=== PATIENT | male | born 1945 | race Caucasian/White ===

== ENCOUNTER 2023-11-20 10:27 | Emergency (ER) | payer MEDICARE, OTHER, SELFPAY ==
[2023-11-20 10:28] VITALS: BP 152/82
[2023-11-20 11:18] LABS: % Basophils 0.4 % (0-2); % Eosinophils 0.4 % (0-6); % Immature Granulocytes 0.2 % (0-0.5); % Lymphocytes 21.4 % (20.5-51.1); % Monocytes 12.1 % (1.7-9.3); % Neutrophils 65.5 % (42.2-75.2); Absolute Monocytes 0.6 10^3/uL (0.1-0.6); Absolute Neutrophils 3.2 10^3/uL (1.4-6.5); Hematocrit 36.8 % (39.0-52.0); Hemoglobin 12.9 g/dL (13.0-18.0); Mean Corp Hgb Conc. 35.1 g/dL (33.0-37.0); Mean Corpuscular Hgb 34.4 pg (27.0-31.0); Mean Corpuscular Volume 98.1 fL (80.0-94.0); Mean Platelet Volume 10.2 fL (7.4-10.4); Nucleated Red Blood Cells % 0 % (-); Platelet Count 174 10^3/uL (130-400); Red Blood Cell Count 3.75 10^6/uL (4.70-6.10); White Blood Cell Count 4.9 10^3/uL (4.8-10.8)
[2023-11-20 11:29] LABS: ALT (SGPT) 20 U/L (0-50); AST (SGOT) 28 U/L (17-59); Albumin 4.8 g/dl (3.5-5.0); Alkaline Phosphatase 82 U/L (38-126); Blood Urea Nitrogen 21 mg/dl (9-20); Calcium 10.2 mg/dl (8.4-10.2); Carbon Dioxide 29 mmol/L (22-30); Chloride 101 mmol/L (98-107); Glucose 105 mg/dl (70-99); Potassium 4.5 mmol/L (3.5-5.1); Sodium 139 mmol/L (135-145); Total Bilirubin 0.7 mg/dl (0.2-1.3); Total Protein 7.4 g/dl (6.3-8.2); eGFR > 60.00
--- NOTE | 2023-11-20 12:01 | ED.GENMED ---
History of Present Illness
<Anderson Jeronimo MD, Resident - Last Filed: 11/20/23 12:47>
General
Chief Complaint: Rectal Bleeding
Time Seen by Provider: 11/20/23 10:58
History of Present Illness
History of Present Illness:
78-year-old male, Mr. Henrry Lin presented past medical history of hypertension, hypercholesterolemia, gout, [place] to the ER presented to the ER at the request of GI, ANURADHA. Patient reports having melena from the past couple of weeks and 1 episode of
bleeding per rectum on 11/18/2023. Patient had history of colonoscopy/polyp excision done in May 2022. Patient reports chronic use of NSAIDs for his cervical spondylosis. Patient denies abdominal pain, fever/chills, chest pain, acute
back pain, bladder issues, tenesmus, recent unintentional weight loss, loss of appetite. Patient has been using Benefiber for his constipation. No prior history of hemorrhoids, anal fissures.
Past History
<Anderson Jeronimo MD, Resident - Last Filed: 11/20/23 12:47>
Past History
ED Past Medical History: Other (Osteoarthritis, gout, hypercholesterolemia, hypertension, aortic regurgitation)
ED Past Surgical History: Other (Appendectomy, herniorrhaphy, cataract surgeries, vasectomy, left knee joint replacement.)
Social History
Tobacco: Non-smoker
Alcohol: Occasional
Drug: None
Living: with family
Phy Exam
<Anderson Jeronimo MD, Resident - Last Filed: 11/20/23 12:47>
Physical Exam
Physical Exam:
Physical Exam
General: no apparent distress, not acutely ill
Neck: supple. no meningeal signs
Heart: s1/s2 regular rate and rhythm, murmur +, equal radial pulses.
Lungs: no acute respiratory distress. clear bilaterally
Abdomen: normal bowel sounds. Nontender, nondistended,. no CVAT
Neuro: alert and oriented. no focal neurological deficits
Skin: no rash
Psychiatric: well kept. interactive and cooperative
Extremities: no edema. no calf tenderness. good distal pulses
Course
<Veneela Manuel Jeronimo MD, Resident - Last Filed: 11/20/23 12:47>
Orders/Labs/Results
Orders:
Orders
11/20/23 11:08
Complete Blood Count/With Diff Urgent
Comprehensive Metabolic Panel Urgent
Abnormal Lab Results
11/20/23
11:08
RBC 3.75 L 10^6/uL
(4.70-6.10)
Hgb 12.9 L g/dL
(13.0-18.0)
Hct 36.8 L %
(39.0-52.0)
MCV 98.1 H fL
(80.0-94.0)
MCH 34.4 H pg
(27.0-31.0)
Absolute Lymphs (auto) 1.0 L 10^3/uL
(1.2-3.4)
Monocytes % 12.1 H %
(1.7-9.3)
BUN 21 H mg/dl
(9-20)
Glucose 105 H mg/dl
(70-99)
11/20/23 11:08
11/20/23 11:08
Vital Signs
Initial and Last Documented VS:
Initial Vital Signs
Temp Pulse Resp BP Pulse Ox
98.4 F 95 18 152/82 97
11/20/23 10:28 11/20/23 10:28 11/20/23 10:28 11/20/23 10:28 11/20/23 10:28
Last Documented Vital Signs
Temp Pulse Resp BP Pulse Ox
98.4 F 95 18 152/82 95
11/20/23 10:28 11/20/23 10:28 11/20/23 10:28 11/20/23 10:28 11/20/23 11:12
<Clint Schultz Radha, DO - Last Filed: 11/20/23 12:54>
Orders/Labs/Results
Orders:
Orders
11/20/23 11:08
Complete Blood Count/With Diff Urgent
Comprehensive Metabolic Panel Urgent
Abnormal Lab Results
11/20/23
11:08
RBC 3.75 L 10^6/uL
(4.70-6.10)
Hgb 12.9 L g/dL
(13.0-18.0)
Hct 36.8 L %
(39.0-52.0)
MCV 98.1 H fL
(80.0-94.0)
MCH 34.4 H pg
(27.0-31.0)
Absolute Lymphs (auto) 1.0 L 10^3/uL
(1.2-3.4)
Monocytes % 12.1 H %
(1.7-9.3)
BUN 21 H mg/dl
(9-20)
Glucose 105 H mg/dl
(70-99)
11/20/23 11:08
11/20/23 11:08
Vital Signs
Initial and Last Documented VS:
Initial Vital Signs
Temp Pulse Resp BP Pulse Ox
98.4 F 95 18 152/82 97
11/20/23 10:28 11/20/23 10:28 11/20/23 10:28 11/20/23 10:28 11/20/23 10:28
Last Documented Vital Signs
Temp Pulse Resp BP Pulse Ox
98.4 F 95 18 152/82 95
11/20/23 10:28 11/20/23 10:28 11/20/23 10:28 11/20/23 10:28 11/20/23 11:12
<Anderson Jeronimo MD, Resident - Last Filed: 11/20/23 12:47>
MDM/Problems Addressed
Differential Diagnosis Includes:
Mesenteric ischemia, polyps, upper GI/lower GI malignancy, peptic ulcer disease/gastritis, bleeding from chronic NSAID use
MDM/Problems Addressed:
Hemoglobin stable at 12.9, very mild drop from his previous 13 done on 11/06/2023.
BUN at 21, glucose at 105.
BP at 152/82. Rest of the vitals stable.
Hemoccult done at bedside was negative.
Patient is asymptomatic.
Reached out to the GI, Dr. Heard, who recommended to follow-up with them.
Patient is advised to follow-up with Dr. Noland as an outpatient. If symptoms worsen, come back to the ER.
<Anderson Jeronimo MD, Resident - Last Filed: 11/20/23 12:47>
*Critical Care Note
Total Time (30-74mins, 75-104mins- exclusive of procedures): Not Applicable
ED Attending Note
<Anderson Jeronimo MD, Resident - Last Filed: 11/20/23 12:47>
-
Portions of this chart may have been created with voice recognition software.� Occasional wrong word or��sound alike� substitutions may have occurred due to the inherent limitations of voice recognition software.
<Clint Garcia DO - Last Filed: 11/20/23 12:54>
ED Attending Note
Patient seen and examined by attending physician: Yes
I performed the substantive portion of visit, reviewed & personally made and approve the management plan that is documented in note by myself or RAJ.: Yes
I performed a history and physical exam of patient and discussed management with resident, I reviewed resident's note and agree with documented findings and plan of care.: Yes
ED Attending Note:
I evaluated patient bedside. He is well-appearing. Heme-negative green stool. Hemoglobin stable. GI was informed.
Discharge Plan
Departure
Patient Disposition: Home (Routine Discharge)
Date of Disposition: 11/20/23
Time of Disposition: 12:44
Patient with high blood pressure during this ER visit?: Yes
Discharge Problem:
Bleeding per rectum
Prescriptions:
No Action
atorvastatin 10 MG tablet
20 mg PO QPM
lisinopril 20 MG tablet
20 mg PO QPM
allopurinol 300 MG tablet
300 mg PO QPM
docosahexaenoic acid-epa 1 CAP capsule
1 cap PO BID
isosorbide mononitrate [Imdur] 30 mg Tablet Extended Release 24 Hr
15 mg PO QPM
Benefiber (guar gum) Packet
1 tbsp PO DAILY
ascorbic acid (vitamin C) [Vitamin C] 500 mg Tablet
500 mg PO DAILY
naproxen sodium [Aleve] 220 mg Tablet
440 mg PO DAILY
calcium carbonate-vitamin D3 [Calcium 500 + D] 500 mg-10 mcg (400 unit) Tablet
1 tab PO DAILY
Referrals:
Ulises Noland MD [Active] -
Trinidad Solano CRNP [Family Provider] -
Activity Restrictions/Additional Instructions:
Please follow-up with Dr. Noland.
Interventions
Interventions:
*Risk Screen - Suicide Last Done: 11/20/23 10:28
*General Assessment Last Done: 11/20/23 10:28
*Neglect/Abuse Screening Last Done: 11/20/23 10:28
*ED COVID-19 Vaccine History Last Done: 11/20/23 10:28
QF-Jegbwu-Tpxypaxgrl Assessment Last Done: 11/20/23 11:12
ED- Cardiac Assessment Last Done: 11/20/23 11:12
ED- Pulmonary Assessment Last Done: 11/20/23 11:12
Discharge Date and Time
Print Language: SWEDISH
[2023-11-20 12:53] VITALS: BP 135/74
== END 2023-11-20 12:59 | disposition home or self-care (01) ==
LOC: EMR 10:27
PROVIDERS: EMERGENCY PHYSICIAN Emergency Medicine; FAMILY PHYSICIAN Nurse Practitioner Family
DX: K62.5 Hemorrhage of anus and rectum (principal); K59.00 Constipation, unspecified; I10 Essential (primary) hypertension; E78.00 Pure hypercholesterolemia, unspecified; M10.9 Gout, unspecified; Z79.1 Long term (current) use of non-steroidal anti-inflammatories (NSAID); M47.812 Spondylosis without myelopathy or radiculopathy, cervical region; M19.90 Unspecified osteoarthritis, unspecified site; Z96.652 Presence of left artificial knee joint
CPT/HCPCS: 99283; 80053; 85025

== ENCOUNTER → 2024-02-16 06:23 | Day surgery (SDC) | payer MEDICARE, OTHER, SELFPAY | LOC: GI 06:23 | PROVIDERS: ATTENDING PHYSICIAN Specialist | DX: D64.9 Anemia, unspecified (principal); R13.10 Dysphagia, unspecified; Q39.9 Congenital malformation of esophagus, unspecified; K57.10 Diverticulosis of small intestine without perforation or abscess without bleeding; K29.50 Unspecified chronic gastritis without bleeding; Z80.0 Family history of malignant neoplasm of digestive organs | CPT/HCPCS: 43239; 88305; 88342 ==